=== PATIENT | female | born 1995 | race Caucasian/White ===

== ENCOUNTER 2020-06-11 14:36 | Outpatient (CLI) | payer OTHER, SELFPAY ==
--- NOTE | ~2020-06-11 | MR_ITS ---
EXAMINATION: MR thoracic spine wo/w con DATE: 06/11/2020 16:29 INDICATION: Multiple sclerosis. TECHNIQUE: Magnetic resonance imaging (MRI) of the thoracic spine was performed without and with 20 m L MultiHance intravenous contrast. Sequences included sagittal and axial T2-weighted FSE, sagittal T2 -weighted FS FSE, and sagittal and axial T1-weighted FSE. Postcontrast sequences included sagittal an d axial T1-weighted FS FSE. COMPARISON: None FINDINGS: There is 8 degrees dextroscoliosis of thoracic spine. There is mild chronic height loss of T8-T10 vertebral bodies. There is mildly decreased disc height at T8-T9 and T9-T10. At T9-T10, the di sc is bulging with mild central canal stenosis. There is facet joint osteoarthritis at a few levels b ilaterally. At T7-T8, there is mild bilateral neural foraminal stenosis. The thoracic spinal cord sig nal intensity is normal. There is no abnormal contrast enhancement. IMPRESSION: 1. Normal thoracic spinal cord. Sensitivity and specificity are decreased by motion artifact. 2. Mild thoracic spondylosis. Reviewed, dictated and finalized at location A. E OPERATOR CONTACT LENS IMPRESSION: 1. Normal thoracic spinal cord. Sensitivity and specificity are decreased by mo tion artifact. 2. Mild thoracic spondylosis.
--- NOTE | ~2020-06-11 | MR_ITS ---
EXAMINATION: MR cervical spine wo/w con DATE: 06/11/2020 16:29 INDICATION: Multiple sclerosis. TECHNIQUE: Magnetic resonance imaging (MRI) of the cervical spine was performed without and with 20 m L MultiHance intravenous contrast. Sequences included sagittal and axial T2-weighted FSE, sagittal ST IR FSE, and sagittal and axial T1-weighted FSE. Postcontrast sequences included sagittal and axial T1 -weighted FS FSE. COMPARISON: None FINDINGS: There is 3 degrees dextrocurvature of cervical spine. Vertebral body heights and interverte bral disc heights are normal. There are multiple patchy ill-defined lesions of increased T2-weighted signal intensity in the spinal cord from C1 to C6. No abnormal contrast enhancement. The following di sc levels are specifically discussed: C2-C3: The disc does not extend beyond the endplate margin. There is no uncovertebral joint osteoarth ritis. There is mild bilateral facet joint osteoarthritis. There is no neural foraminal stenosis. The re is no central canal stenosis. C3-C4: The disc does not extend beyond the endplate margin. There is no uncovertebral joint osteoarth ritis. There is moderate right and severe left facet joint osteoarthritis. There is no neural foramin al stenosis. There is no central canal stenosis. C4-C5: There is a central protrusion. There is no uncovertebral joint osteoarthritis. There is modera te bilateral facet joint osteoarthritis. There is no neural foraminal stenosis. There is mild central canal stenosis. C5-C6: There is a central protrusion. There is no uncovertebral joint osteoarthritis. There is mild b ilateral facet joint osteoarthritis. There is no neural foraminal stenosis. There is mild central can al stenosis. C6-C7: There is a central protrusion. There is no uncovertebral joint osteoarthritis. There is mild l eft facet joint osteoarthritis. There is no neural foraminal stenosis. There is mild central canal st enosis. C7-T1: The disc does not extend beyond the endplate margin. There is no uncovertebral joint osteoarth ritis. There is mild bilateral facet joint osteoarthritis. There is no neural foraminal stenosis. The re is no central canal stenosis. IMPRESSION: 1. Multiple nonenhancing lesions in the cervical spinal cord, consistent with multiple sclerosis. Sen sitivity and specificity are decreased by motion artifact. Reviewed, dictated and finalized at location A. R METER READER IMPRESSION: 1. Multiple nonenhancing lesions in the cervical spinal cord, consistent with m ultiple sclerosis. Sensitivity and specificity are decreased by motion artifact .
[2020-06-11 15:10] LABS: Estimated Glomerular Filt Rate > 60
== END 2020-06-11 14:37 | disposition home or self-care (01) ==
PROVIDERS: PCP Family Medicine; Visit Provider Psychiatry & Neurology Neurology
DX: G35 Multiple sclerosis (principal); M47.814 Spondylosis without myelopathy or radiculopathy, thoracic region
CPT/HCPCS: 72156; 72157; A9577

== ENCOUNTER 2020-06-23 11:25 | Outpatient (CLI) | payer OTHER, SELFPAY ==
[2020-06-23 12:01] LABS: Basophils Absolute Auto 0.04 K/mm3 (0.00-0.10); Basophils Percent Auto 0.5 % (0.0-1.0); Eosinophils Absolute Auto 0.13 K/mm3 (0.02-0.50); Eosinophils Percent Auto 1.7 % (1.0-6.0); Hematocrit 39.4 % (35.0-49.0); Hemoglobin 12.8 g/dL (12.0-15.0); Immature Granulocyte Absolute 0.02 K/mm3 (0.00-0.00); Immature Granulocyte Percent A 0.3 % (0.0-0.0); Lymphocytes Absolute Auto 2.36 K/mm3 (1.10-4.50); Lymphocytes Percent Auto 31.6 % (18.0-42.0); Mean Corpuscular HGB Conc 32.5 g/dL (32.0-36.0); Mean Corpuscular Hemoglobin 28.2 pg (27.0-31.0); Mean Corpuscular Volume 86.8 fL (78.0-102.0); Mean Platelet Volume 10.1 fl (9.2-11.8); Monocytes Absolute Auto 0.57 K/mm3 (0.10-0.90); Monocytes Percent Auto 7.6 % (2.0-11.0); Neutrophils Absolute Auto 4.4 K/mm3 (1.7-7.2); Neutrophils Percent Auto 58.3 % (50.0-70.0); Platelet Count Result 247 K/mm3 (150-420); Red Blood Count 4.54 M/mm3 (4.20-5.40); Red Cell Distribution Width 12.9 % (11.6-14.4); White Blood Count 7.5 K/mm3 (4.8-10.8)
[2020-06-23 12:57] LABS: Alanine Aminotransferase 30 U/L (14-59); Albumin Level 4.6 g/dL (3.4-5.0); Alkaline Phosphatase 40 U/L (46-116); Anion Gap 10 mmol/L (8-16); Aspartate Amino Transferase 10 U/L (15-37); Bilirubin,Total 0.3 mg/dL (0.00-1.00); Blood Urea Nitrogen 10 mg/dL (7-18); Calcium 9.2 mg/dL (8.5-10.1); Carbon Dioxide 24 mmol/L (21-32); Chloride 107 mmol/L (98-108); Estimated Glomerular Filt Rate > 60; Glucose 87 mg/dL (70-99); Osmolality Calculated 290 mOsm/kg (285-295); Potassium 4.6 mmol/L (3.5-5.1); Sodium 141 mmol/L (136-145); Total Protein 7.5 g/dL (6.4-8.2)
[2020-06-26 10:35] LABS: Hepatitis A Antibody IgM Nonreactive; Hepatitis B Core Antibody Nonreactive (Nonreactive); Hepatitis B Surface Antigen Nonreactive (Nonreactive); Hepatitis C Signal to Cutoff 0.02 ratio (<1.00); Hepatitis C Virus Antibody Nonreactive (Nonreactive)
[2020-06-26 13:18] LABS: JC Polyoma Virus DNA, QL Plasma; JC Polyoma Virus Source Not Detected (Not Detected)
== END 2020-06-23 11:26 | disposition home or self-care (01) ==
LOC: CHSLAB 11:27
PROVIDERS: PCP Family Medicine; Visit Provider Psychiatry & Neurology Neurology
DX: G35 Multiple sclerosis (principal)
CPT/HCPCS: 36415; 80053; 80074; 85025; 87798

== ENCOUNTER 2021-10-03 06:42 | Emergency (ER) | payer OTHER, SELFPAY ==
[2021-10-03 07:20] VITALS: BP 154/94; PULSE 88; RESP 20; TEMP 36.6; O2SAT 98
--- NOTE | 2021-10-03 07:29 | ED.DENTAL ---
HPI - Dental/Oral General Chief complaint: Dental/Oral Stated complaint: tooth pain Source: patient Mode of arrival: ambulatory History of Present Illness HPI Narrative: this is a 25-year-old female with no significant past medical history presents with chronic tooth decay and a cracked right upper molar and premolar with surrounding gum inflammation, with tender right lower jaw and tender right submandibular gland with palpation with no fever chills no shortness of breath. MD Complaint: tooth pain Teeth map: 1. crack 2 with some dental decay and surrounding gum inflammation Onset (ago): day(s) Duration: constant Severity: moderate Severity scale (1-10): 6 Relieving factors: NSAIDs Exacerbating factors: chewing, cold, drinking fluids and swallowing Context: history of dental caries, trauma (mechanism) and poor dental care Related Data Allergies Allergy/AdvReac Type Severity Reaction Status Date / Time No Known Allergies Allergy Verified 05/12/21 14:22 Review of Systems Review of Systems: All systems reviewed & are unremarkable except as noted in HPI and below PMFSH Past Medical History Medical History Multiple sclerosis Social History Social History Smoking status: Current some day smoker Alcohol intake: never Exam Const: General: no acute distress Orientation/consciousness: patient oriented x3 HENMT: Head: normal to inspection Other: Right upper premolar dental decay with cracked tooth and surrounding gum inflammation Eyes: Conjunctivae: conjunctivae normal Pupils: Equal, round and reactive pupils present Neck: Neck: normal visual inspection Chest: Chest palpation & inspection: normal inspection of the chest Resp: Effort & Inspection: normal respiratory effort Auscultation: clear to auscultation bilaterally Cardio: Rate: regular rate Rhythm: regular rhythm GI: Auscultation: normal bowel sounds : General: Yes no CVA tenderness Urinary Catheter: Urinary Catheter: patent and draining Back/Spine/Pelvis: Back: no CVA tenderness Skin: General skin exam: normal color Neuro: General: patient oriented x3 and moves all extremities Extrem: General: normal to inspection Psych: Mental Status: mental status grossly normal Affect: normal affect Course Course Emergency Course: patient received 60mg of IM Toradol for pain relief list of dentists to follow up with and started on antibiotics. Critical Care Time Critical Care Time Critical Care Time: No Discharge Plan Discharge Clinical Impression: Dental abscess Fracture of tooth Qualifiers: Encounter type: initial encounter Fracture type: closed Qualified Code(s): S02.5XXA - Fracture of tooth (traumatic), initial encounter for closed fracture Patient Disposition: Home, Self-Care Condition: Stable Instructions: Antibiotic Form, Dental Abscess (ED), Toothache (ED) Additional Instructions: Take medicine as prescribed and follow-up with dentist as soon as possible. Prescriptions: New tramadol [Ultram] 50 mg tablet 50 mg PO Q6H PRN (Reason: pain) Qty: 20 RF: 0 amoxicillin 500 mg tablet 500 mg PO TID Qty: 30 RF: 0 No Action hydrocodone-acetaminophen 10-325 mg tablet 1 tablet PO Q8H PRN (Reason: pain) Qty: 30 RF: 0 glatiramer 40 mg/mL syringe See Rx Instructions .ROUTE .COMPLEX Qty: 12 RF: 3 Follow-up/Referrals: Sebastián,MD Vu [Primary Care Provider] - Stand Alone Forms: Work/School Release IP Time of Disposition: 07:34
[2021-10-03] MEDS: KETOROLAC (*BKC) 60 MG/2 ML VIAL IM (07:41)
[2021-10-03 08:08] VITALS: BP 134/88; PULSE 75; RESP 20; TEMP 36.7; O2SAT 100
== END 2021-10-03 08:11 | disposition home or self-care (01) ==
PROVIDERS: Emergency Provider Emergency Medicine; PCP Family Medicine
DX: K04.7 Periapical abscess without sinus (principal); S02.5XXA Fracture of tooth (traumatic), initial encounter for closed fracture
CPT/HCPCS: 96372; 99283; J1885

== ENCOUNTER 2023-09-23 19:19 | Emergency (ER) | payer BC, OTHER, SELFPAY ==
--- NOTE | 2023-09-23 19:31 | ED.DENTAL ---
HPI - Dental/Oral General Chief complaint: Dental/Oral Stated complaint: lower tooth pain Time Seen by Provider: 09/23/23 19:20 History of Present Illness HPI Narrative: Patient is a 27-year-old female with history of MS, managed by [facility] here with dental pain. Patient states that she has had poor dentition since When she started to have children. She states that when she got her last tooth extracted, on the left lower side the dentist seemed to cracked the tooth in front of it. She notes that the tooth has been cracked since and just began having pain in this tooth about 1 week ago. She notes that the pain seems to be worsening and she has noted some swelling localized in that area. She has been applying [id number] dental paste and wax to help with the pain which seems to help. The pain radiates into her upper face and into her ear. She denies any difficulty breathing or swallowing. She denies any pain with moving her mouth. She has been using Tylenol and ibuprofen which seems to take the edge off of her pain but not resolve it. She has plans to see a dentist but is unable to get a day off to see them until mid next week. Related Data Home Medications Medication Instructions Recorded Confirmed medroxyprogesterone 150 mg/mL 150 mg IM [id number] 09/23/23 09/23/23 intramuscular syringe Allergies Allergy/AdvReac Type Severity Reaction Status Date / Time No Known Allergies Allergy Verified 09/23/23 19:49 Review of Systems Review of Systems: All systems reviewed & are unremarkable except as noted in HPI and below PMFSH Past Medical History Medical History Multiple sclerosis Social History Social History (Updated 06/29/23 @ 13:03 by Tran Deras MA) Smoking packs per day: 1 Smoking cigarettes per day: 20.0 Years smoked: 10 Smoking pack-years: 10.00 Smoking status: Current some day smoker Tobacco type: cigarettes Second hand tobacco smoke exposure: Yes Alcohol intake: never Substance use: never Lack of Transportation: No Lack of Food: Never True Current Housing: I Have Housing Concerned About Future Housing: No Difficulty Paying Gas/Electric Bills: No Difficulty Paying for Meds: No Currently Unemployed: No Education: High School Diploma/GED Difficulty w/ Childcare or Family Care: No Exam Narrative: GENERAL: Well-appearing, well-nourished, and in no acute distress. HEAD: Normocephalic, atraumatic. EYES: PERRLA and EOMI. ENT: Nares clear. Mucous membranes moist. No posterior pharyngeal swelling or uvula midline. Poor dentition with multiple cavities throughout. She has a fractured and tender tooth #19. No surrounding visualized abscess. No trismus. No fullness beneath the tongue. No facial swelling. NECK: Supple. CHEST: Unlabored respirations HEART: Regular rate and rhythm ABDOMEN: Soft, nontender, nondistended. EXTREMITIES: moving all 4 extremities SKIN: Warm, dry, no rash. NEURO: No focal deficits. Alert and oriented x3. PSYCH: Normal mood and affect. Course Course Emergency Course: Chart review performed. Patient here for dental pain. Triage vitals normal. Patient seen evaluated, nontoxic appearing. She appears to have isolated dental pain to the left lower jaw. No local abscess that would benefit immediate drainage. No concern for deep space infection based on exam and history. Will start patient on antibiotics and give her information for dental referral. The results of pertinent diagnostic studies and exam findings were discussed. The patient?s provisional diagnosis and plan of care were discussed with the patient and present family. The patient and/or present family expressed understanding of the diagnosis and plan. The nurse was instructed to provide written instructions and appropriate follow-up information. The patient understands their need and respon
[2023-09-23 19:44] VITALS: BP 140/86; PULSE 78; RESP 20; TEMP 36.8; O2SAT 100
[2023-09-23] MEDS: PENICILLIN V POTASSIUM 250 MG TABLET 500 MG PO (20:10)
== END 2023-09-23 20:19 | disposition home or self-care (01) ==
PROVIDERS: Emergency Provider Student in an Organized Health Care Education/Training Program; PCP Family Medicine
DX: K02.9 Dental caries, unspecified (principal); G35 Multiple sclerosis; F17.210 Nicotine dependence, cigarettes, uncomplicated
CPT/HCPCS: 99283; A9270

== ENCOUNTER 2025-06-29 16:54 | Emergency (ER) | payer BC, OTHER, SELFPAY ==
[2025-06-29 16:54] VITALS: BP 158/100; PULSE 105; RESP 18; TEMP 37.2; O2SAT 99
--- NOTE | 2025-06-29 17:05 | ED.DENTAL ---
HPI - Dental/Oral General Chief complaint: Dental/Oral Stated complaint: dental pain Time Seen by Provider: 06/29/25 17:05 Source: patient Mode of arrival: ambulatory Limitations: no limitations History of Present Illness MD Complaint: tooth pain Teeth map:  1. History of tooth decay with only a broken tooth with surrounding gum inflammation and tenderness and swelling the left submandibular gland Duration: constant Severity: moderate Severity scale (1-10): 7 Relieving factors: NSAIDs Exacerbating factors: chewing, cold and drinking fluids Context: history of dental caries Associated symptoms: gum swelling Related Data Home Medications ?Medication ?Instructions ?Recorded ?Confirmed ?Last Taken ?Type medroxyprogesterone 150 mg/mL 150 mg IM [id number] 09/23/23 09/23/23 Unknown History intramuscular syringe Allergies Allergy/AdvReac Type Severity Reaction Status Date / Time No Known Allergies Allergy Verified 06/29/25 17:00 Review of Systems Review of Systems: All systems reviewed & are unremarkable except as noted in HPI and below PMFSH Past Medical History Medical History Multiple sclerosis Social History Social History Smoking packs per day: 1 Smoking cigarettes per day: 20.0 Years smoked: 10 Smoking pack-years: 10.00 Smoking status: Current some day smoker Tobacco type: cigarettes Second hand tobacco smoke exposure: Yes Alcohol intake: never Substance use: never Lack of Transportation: No Lack of Food: Never True Current Housing: I Have Housing Concerned About Future Housing: No Difficulty Paying Gas/Electric Bills: No Difficulty Paying for Meds: No Currently Unemployed: No Education: High School Diploma/GED Difficulty w/ Childcare or Family Care: No Exam Const: General: healthy appearing and no acute distress Nutritional Appearance: well nourished and obese Orientation/consciousness: patient oriented x3 Limitations: no limitations HENMT: Face and sinus: normal facial exam Neck: Neck: lymphadenopathy Chest: Chest palpation & inspection: normal inspection of the chest Resp: Effort & Inspection: normal respiratory effort Auscultation: clear to auscultation bilaterally Cardio: Rate: regular rate Rhythm: regular rhythm GI: GI Palp: Yes Soft to palpation Auscultation: normal bowel sounds Course Course Emergency Course: Medical decision making narrative: The patient was evaluated by myself in the emergency department. History obtained from the patient is an independent historian and physical exam performed witnessed by tech. Patient received 60mg IM Toradol for pain relief and started on 500 of amoxicillin p.o.. Repeat assessment: Patient doing well on repeat exam with no acute distress Symptoms improved since arrival to the emergency department Vitals are stable Patient agrees with discussion after shared medical decision-making and agrees with discharge All questions answered to the patient's satisfaction Follow-up with Primary/dentist in the next 3 to 5 days. Vital Signs Vital signs: Vital Signs Temperature 37.2 C 06/29/25 16:54 Pulse Rate 105 H 06/29/25 16:54 Respiratory Rate 18 06/29/25 16:54 Blood Pressure 158/100 H 06/29/25 16:54 Pulse Oximetry 99 06/29/25 16:54 Oxygen Delivery Room Air 06/29/25 16:54 Temperature 37.2 C 06/29/25 16:54 Pulse Rate 105 H 06/29/25 16:54 Respiratory Rate 18 06/29/25 16:54 Blood Pressure 158/100 H 06/29/25 16:54 Pulse Oximetry 99 06/29/25 16:54 Oxygen Delivery Room Air 06/29/25 16:54 MDM Differential Diagnosis Differential Diagnosis: Dental abscess/cracked tooth Critical Care Time Critical Care Time Critical Care Time: No Discharge Plan Discharge Clinical Impression: Pain due to dental trauma, Dental abscess Patient Disposition: Home Condition: Stable Instructions: Antibiotic Form, Dental Abscess (ED), Toothache (ED) Additional Instructions: Advised patient to take medication as prescribed and to follow with dentist/PCP in next 3 to 5 days further evaluation treatment. Patient Language: Belgian Prescriptions: New amoxicillin 500 mg capsule 500 mg PO TID Qty: 30 0RF tramadol 50 mg tablet 50 mg PO Q6H PRN (Reason: pain) Qty: 20 0RF No Action medroxyprogesterone 150 mg/mL syringe 150 mg IM [id number] penicillin V potassium 500 mg tablet 500 mg PO Q6H 10 Days Qty: 40 0RF glatiramer [Copaxone] 40 mg/mL syringe 40 mg subcut 3XW Qty: 12 11RF Rx Instructions: INJECT ONE SYRINGE UNDER THE SKIN THREE TIMES PER WEEK ON THE SAME 3 DAYS EACH WEEK, AT LEAST 48 HOURS APART IN THE ABDOMEN, THIGHS, UPPER OUTER AREAS OF BUTTOCKS, OR OUTER AREA OF UPPER ARMS ROTATING INJECTION SITES. Follow-up/Referrals: Kervin Fink MD [Primary Care Provider, Internal Medicine] Stand Alone Forms: Work/School Release IP Time of Disposition: 17:11
[2025-06-29] MEDS: KETOROLAC (*BKC) 60 MG/2 ML VIAL IM (17:13)
[2025-06-29] MEDS: AMOXICILLIN 500 MG CAPSULE PO (17:13)
== END 2025-06-29 17:43 | disposition home or self-care (01) ==
LOC: CHSED 17:17
PROVIDERS: Emergency Provider Emergency Medicine; PCP Family Medicine
DX: K04.7 Periapical abscess without sinus (principal); K03.81 Cracked tooth; G35.D Multiple sclerosis, unspecified; F17.210 Nicotine dependence, cigarettes, uncomplicated
CPT/HCPCS: 96372; 99283; A9270; J1885